=== PATIENT | male | born 1980 | race Caucasian/White ===

== ENCOUNTER 2020-12-06 23:37 | Emergency (ER) | payer OTHER ==
[2020-12-07 01:28] LABS: HEMOGLOBIN 14.8 gm/dl (14.0-17.5); RED BLOOD COUNT 5.12 M/UL (4.20-5.50); WHITE BLOOD COUNT 10.5 K/UL (4.5-11.0)
[2020-12-07 01:44] LABS: BUN/CREATININE RATIO 18 (0-10)
== END 2020-12-07 04:25 | disposition home or self-care (01) ==
LOC: ER1 23:37
PROVIDERS: Physician Assistant
DX: L03.213 Periorbital cellulitis (principal); E11.9 Type 2 diabetes mellitus without complications; Z79.84 Long term (current) use of oral hypoglycemic drugs
CPT/HCPCS: 70487; 71045; 80053; 83605; 83735; 83880; 84100; 85025; 85652; 86140; 87040; 96374; 99285; J0692; J7030; Q9967